=== PATIENT | female | born 1945 | race Caucasian/White ===

== ENCOUNTER 2018-04-12 04:41 | Inpatient (IN) ==
[2018-04-12] MEDS ORDERED: SODIUM CHLORIDE 0.9% 1,000 ML IV STA (04:52)
[2018-04-12 05:22] LABS: Basophils # 0.1 10*3/uL (0.0-0.2); Basophils % 0.5 % (0.0-0.8); Eosinophils # 0.1 10*3/uL (0.0-0.87); Eosinophils % 0.7 % (0.00-10.9); Hematocrit 45.2 VOL% (35.7-47.0); Hemoglobin 14.7 GM/DL (12.0-16.0); Immature Granulocytes % 0.3 %; Immature Granulocytes Absolute 0.04 #; Lymphocytes # 1.4 10*3/uL (1.4-4.0); Lymphocytes % 10.1 % (21.3-54.2); Mean Corpuscular HGB Conc 32.5 GM/DL (32-36); Mean Corpuscular Hemoglobin 30 PG (27-34); Mean Corpuscular Volume 91.7 FL (87-102); Mean Platelet Volume 11.7 FL (9.6-12.0); Monocytes # 0.8 10*3/uL (0.11-0.8); Monocytes % 5.6 % (1.7-12.7); Neutrophils # 11.2 10*3/uL (1.4-7.4); Neutrophils % 82.8 % (38.7-73.9); Platelet Count 228 T/CUMM (130-400); Red Blood Count 4.93 MC/CUMM (3.8-5.5); Red Cell Distribution Width 14.5 % (9.3-17.3); White Blood Count 13.5 T/CUMM (4-12)
[2018-04-12] MEDS ORDERED: HYDROmorphone 2 MG/1 ML VIAL IV STA (05:28)
[2018-04-12 05:37] LABS: Barbiturates Screen,Urine Negative (Negative); Benzodiazepines Screen,Urine Negative (Negative); Cannabinoid Screen,Urine Negative (Negative); Opiate Screen,Urine Positive (Negative); Phencyclidine Screen,Urine Negative (Negative)
[2018-04-12 05:38] LABS: Albumin 4.4 G/DL (3.4-5.0); Bilirubin,Total 0.9 MG/DL (0.2-1.0); Calcium 10.2 MG/DL (8.5-10.1); Osmolality,Calculated 286.4 MOS/KG (273-304); Potassium 3.9 MMOL/L (3.5-5.1); Total Protein 8.1 G/DL (6.4-8.3)
[2018-04-12] MEDS ORDERED: AMIODARONE 450 MG/9 ML VIAL IV ONE (05:44)
[2018-04-12] MEDS ORDERED: MAGNESIUM SULF RIDER 1 GM in PREMIX 1 EACH IV STA (06:09)
[2018-04-12] MEDS ORDERED: MAGNESIUM SULF RIDER 2 GM in PREMIX 1 EACH IV STA (06:19)
[2018-04-12] MEDS ORDERED: MAGNESIUM SULF RIDER 2 GM in PREMIX 1 EACH IV PRN ×2 (06:20→07:27)
[2018-04-12] MEDS ORDERED: MAGNESIUM SULF RIDER 4 GM in PREMIX 1 EACH IV PRN (06:20)
[2018-04-12] MEDS ORDERED: AMIODARONE INJ 450 MG in DEXTROSE 5% 241 ML IV SCH (06:30)
[2018-04-12] MEDS ORDERED: diphenhydrAMINE CAP 25 MG CAPSULE PO ONE (07:27)
[2018-04-12] MEDS ORDERED: POTASSIUM CHLORIDE RIDER 10 MEQ in PREMIX 1 EACH IV PRN (07:27)
[2018-04-12] MEDS ORDERED: DIAZEPAM 5 MG TABLET PO ONE (07:27)
[2018-04-12] MEDS ORDERED: SODIUM CHLORIDE 0.45% 1,000 ML IV SCH (07:30)
[2018-04-12] MEDS ORDERED: LIDOCAINE 1% 20 ML VIAL ONE ×3 (07:52→11:21)
[2018-04-12] MEDS ORDERED: HYDROmorphone 2 MG/1 ML VIAL ONE (07:53)
[2018-04-12] MEDS ORDERED: MIDAZOLAM 2 MG/2 ML VIAL ONE ×3 (07:53→11:10)
[2018-04-12] MEDS ORDERED: ZALEPLON 5 MG CAPSULE PO PRN (08:49)
[2018-04-12] MEDS ORDERED: ONDANSETRON 4 MG/2 ML VIAL IV PRN (08:49)
[2018-04-12] MEDS ORDERED: HEPARIN/NACL 0.9% 2 UNITS/ML 500 ML IV ONE ×2 (09:39→11:21)
[2018-04-12] MEDS ORDERED: fentaNYL 100 MCG/2 ML VIAL ONE ×4 (09:40→11:31)
[2018-04-12] MEDS ORDERED: TISSUE ADHESIVE 1 EACH APPLICATOR TOP ONE ×2 (09:40→11:23)
[2018-04-12] MEDS ORDERED: ceFAZolin 1,000 MG VIAL ONE ×2 (09:40→11:23)
[2018-04-12] MEDS ORDERED: GLUCAGON 1 MG VIAL IM PRN (10:58)
[2018-04-12] MEDS ORDERED: DEXTROSE 50% 25 GM/50 ML VIAL IV PRN (10:58)
[2018-04-12] MEDS ORDERED: ACETAMINOPHEN 325 MG TABLET PO PRN (10:58)
[2018-04-12] MEDS ORDERED: METOPROLOL TARTRATE 25 MG TABLET ONE (11:02)
[2018-04-12 11:36] LABS: Risk Ratio 2.03; VLDL CHOLESTEROL 15.4 MG/DL
[2018-04-12] MEDS ORDERED: hydrALAZINE 20 MG/1 ML VIAL ONE (12:17)
[2018-04-12] MEDS: INSULIN REGULAR 100 UNIT/ML SUBCUT SCH ×3 (13:25→23:51)
[2018-04-12] MEDS: MORPHINE ER 15 MG TABLET PO SCH ×2 (13:58→22:24)
[2018-04-12] MEDS: METOPROLOL TARTRATE 50 MG TABLET PO SCH ×2 (13:58→22:24)
[2018-04-12] MEDS ORDERED: hydrALAZINE 20 MG/1 ML VIAL IV PRN (13:59)
[2018-04-12] MEDS ORDERED: HYDROmorphone 2 MG/1 ML VIAL IV PRN (17:27)
[2018-04-12] MEDS: SILVER SULFADIAZINE 1% CREAM 25 GM TUBE TOP SCH (17:30)
[2018-04-12] MEDS: ceFAZolin 1,000 MG in SYRINGE 1 EACH IV SCH (18:22)
[2018-04-13] MEDS: ceFAZolin 1,000 MG in SYRINGE 1 EACH IV SCH (02:58)
[2018-04-13 04:08] LABS: Calcium 8.6 MG/DL (8.5-10.1); Osmolality,Calculated 277.8 MOS/KG (273-304); Potassium 3.7 MMOL/L (3.5-5.1)
[2018-04-13 04:45] LABS: Basophils % 0.3 % (0.0-0.8); Eosinophils % 0.1 % (0.00-10.9); Hematocrit 45.9 VOL% (35.7-47.0); Hemoglobin 14.7 GM/DL (12.0-16.0); Immature Granulocytes % 0.6 %; Immature Granulocytes Absolute 0.07 #; Lymphocytes # 1.2 10*3/uL (1.4-4.0); Mean Corpuscular Hemoglobin 30 PG (27-34); Mean Corpuscular Volume 92.4 FL (87-102); Monocytes # 0.9 10*3/uL (0.11-0.8); Monocytes % 7.9 % (1.7-12.7); Neutrophils # 9.4 10*3/uL (1.4-7.4); Neutrophils % 81.1 % (38.7-73.9); Platelet Count 166 T/CUMM (130-400); Red Blood Count 4.97 MC/CUMM (3.8-5.5); Red Cell Distribution Width 14.4 % (9.3-17.3); White Blood Count 11.6 T/CUMM (4-12)
[2018-04-13 05:27] LABS: Acanthocytes Few; Ovalocytes Few; Platelet Estimate Normal
[2018-04-13] MEDS: INSULIN REGULAR 100 UNIT/ML SUBCUT SCH ×4 (08:20→21:17)
[2018-04-13] MEDS: MORPHINE ER 15 MG TABLET PO SCH ×2 (09:13→21:16)
[2018-04-13] MEDS: SILVER SULFADIAZINE 1% CREAM 25 GM TUBE TOP SCH (09:14)
[2018-04-13] MEDS: cephALEXin 500 MG CAPSULE PO SCH ×2 (09:14→21:17)
[2018-04-13] MEDS: METOPROLOL TARTRATE 100 MG TABLET PO SCH ×2 (09:14→21:16)
[2018-04-13] MEDS: ROSUVASTATIN 20 MG TABLET PO SCH (21:16)
[2018-04-14 04:37] LABS: Basophils % 0.4 % (0.0-0.8); Eosinophils # 0.1 10*3/uL (0.0-0.87); Eosinophils % 0.7 % (0.00-10.9); Immature Granulocytes % 0.4 %; Immature Granulocytes Absolute 0.04 #; Lymphocytes # 1.9 10*3/uL (1.4-4.0); Lymphocytes % 19.2 % (21.3-54.2); Mean Corpuscular HGB Conc 33.3 GM/DL (32-36); Mean Corpuscular Hemoglobin 30 PG (27-34); Mean Corpuscular Volume 90.2 FL (87-102); Mean Platelet Volume 12.5 FL (9.6-12.0); Monocytes # 0.9 10*3/uL (0.11-0.8); Monocytes % 9.2 % (1.7-12.7); Neutrophils # 7.1 10*3/uL (1.4-7.4); Neutrophils % 70.1 % (38.7-73.9); Platelet Count 135 T/CUMM (130-400); Red Blood Count 4.99 MC/CUMM (3.8-5.5); Red Cell Distribution Width 14.1 % (9.3-17.3); White Blood Count 10.1 T/CUMM (4-12)
[2018-04-14 04:54] LABS: Calcium 8.5 MG/DL (8.5-10.1); Osmolality,Calculated 284.4 MOS/KG (273-304); Potassium 3.3 MMOL/L (3.5-5.1)
[2018-04-14] MEDS: INSULIN REGULAR 100 UNIT/ML SUBCUT SCH ×4 (09:04→23:13)
[2018-04-14] MEDS: cephALEXin 500 MG CAPSULE PO SCH ×2 (09:05→23:14)
[2018-04-14] MEDS: MORPHINE ER 15 MG TABLET PO SCH ×2 (09:05→23:14)
[2018-04-14] MEDS: LOSARTAN 25 MG TABLET PO SCH (09:05)
[2018-04-14] MEDS: METOPROLOL TARTRATE 100 MG TABLET PO SCH ×2 (09:06→23:14)
[2018-04-14] MEDS: ASPIRIN EC 81 MG TABLET PO SCH (09:06)
[2018-04-14] MEDS: SILVER SULFADIAZINE 1% CREAM 25 GM TUBE TOP SCH (09:06)
[2018-04-14] MEDS: metFORMIN 500 MG TABLET PO SCH ×2 (09:14→16:23)
[2018-04-14] MEDS: POTASSIUM CHLORIDE 20 MEQ TABLET PO PRN ×3 (13:28→18:19)
[2018-04-14] MEDS: ROSUVASTATIN 20 MG TABLET PO SCH (23:14)
[2018-04-15] MEDS: INSULIN REGULAR 100 UNIT/ML SUBCUT SCH ×2 (08:06→14:18)
[2018-04-15 08:07] VITALS: BP 115/71
[2018-04-15] MEDS: cephALEXin 500 MG CAPSULE PO SCH (09:51)
[2018-04-15] MEDS: metFORMIN 500 MG TABLET PO SCH (09:51)
[2018-04-15] MEDS: LOSARTAN 25 MG TABLET PO SCH (09:51)
[2018-04-15] MEDS: ASPIRIN EC 81 MG TABLET PO SCH (09:51)
[2018-04-15] MEDS: MORPHINE ER 15 MG TABLET PO SCH (09:51)
[2018-04-15] MEDS: METOPROLOL TARTRATE 100 MG TABLET PO SCH (09:52)
[2018-04-15] MEDS: SILVER SULFADIAZINE 1% CREAM 25 GM TUBE TOP SCH (11:34)
== END 2018-04-15 13:25 | disposition home health service (06) | DRG 243 ==
LOC: EDUNIT# → EDBD → N.ED 04:41 → N.EDINP 06:20 → N.CC 07:21 → N.TELEN 04-13 18:12
PROVIDERS: ADMIT Internal Medicine Cardiovascular Disease; ATTEND Internal Medicine Cardiovascular Disease
PROC: CLCCHCL (ICD-10-PCS; 2018-04-12 08:45)